=== PATIENT | male | born 1990 | race Two or more races ===

== ENCOUNTER 2024-05-01 14:00 | Outpatient (CLI) | payer OTHER | END 2024-05-01 14:10 | disposition home or self-care (01) | LOC: PPH VACUNA 14:00 | PROVIDERS: ATTEND Emergency Medicine Pediatric Emergency Medicine | DX: Z23 Encounter for immunization (principal) ==

== ENCOUNTER 2024-07-07 11:52 | Emergency (ER) | payer OTHER ==
[~2024-07-07] VITALS: Ht 165.1 cm; Wt 53.5 kg
[2024-07-07] MEDS ORDERED: KETOROLAC TROMETHAMINE 60 MG VIAL IM STA (19:12)
[2024-07-07] MEDS ORDERED: ORPHENADRINE CITRATE 30 MG/ML AMPUL IM STA (19:13)
== END 2024-07-07 20:06 | disposition home or self-care (01) ==
LOC: ER 11:54
DX: M54.50 Low back pain, unspecified (principal)

== ENCOUNTER 2024-08-07 12:21 | Emergency (ER) | payer OTHER ==
[~2024-08-07] VITALS: Ht 162.6 cm; Wt 51.3 kg
== END 2024-08-07 16:25 | disposition home or self-care (01) ==
LOC: ER 12:24
DX: J06.9 Acute upper respiratory infection, unspecified (principal); R53.81 Other malaise; Z20.822 Contact with and (suspected) exposure to COVID-19